=== PATIENT | male | born 2000 ===

== ENCOUNTER 2023-06-17 18:56 | Outpatient (REF) | payer OTHER, SELFPAY ==
--- NOTE | ~2023-06-17 | MR_ITS ---
EXAMINATION: MR BRAIN WITH AND WITHOUT CONTRAST CLINICAL INFORMATION: Headache, syncope COMPARISON: None available TECHNIQUE: MRI of the brain was obtained using routine sequences before and following administration of intravenous contrast. A total of 6 mL of Gadavist was administered intravenously. FINDINGS: There is no reduced diffusion to suggest acute infarct. Susceptibility weighted sequence is within normal limits. No mass effect, extra-axial collection, midline shift, or other herniation. Small developmental venous anomaly in the right frontal lobe. Otherwise, no abnormal intracranial enhancement. The ventricles and sulci are normal in size and configuration. Intracranial flow voids are preserved. Trace ethmoid air cell mucosal thickening. The mastoid air cells are clear. No focal expansile/destructive osseous lesion.. MR/MR head/brain wo/w con IMPRESSION: No acute infarction or mass effect. No abnormal intracranial enhancement.
[2023-06-17] MEDS: gadobutroL 10 ML VIAL IVPUSH (20:09)
== END 2023-06-17 18:57 | disposition home or self-care (01) ==
LOC: HO.MRI 18:56
PROVIDERS: Visit Provider Family Medicine
DX: R51.9 Headache, unspecified (principal); R55 Syncope and collapse
CPT/HCPCS: 70553; A9585